=== PATIENT | female | born 1975 | race Caucasian/White ===

== ENCOUNTER 2018-01-14 10:28 | Outpatient (CLI) | payer BC | END 2018-01-14 10:29 | disposition home or self-care (01) | LOC: BICMAMMO 10:28 | PROVIDERS: ATTEND Internal Medicine Hematology & Oncology | DX: Z08 Encounter for follow-up examination after completed treatment for malignant neoplasm (principal); Z85.3 Personal history of malignant neoplasm of breast; Z80.3 Family history of malignant neoplasm of breast | CPT/HCPCS: G0279 ==

== ENCOUNTER 2018-09-05 14:32 | Outpatient (CLI) | payer BC ==
[~2018-09-05 14:32] MED LIST: Iopamidol 370 76% 100 ML VIAL ONE
--- NOTE | 2018-09-05 16:02 | CT ---
CHEST CT WITH CONTRAST: Date: 09/05/18 HISTORY: Breast cancer. Left mastectomy with reconstruction. Recent chest radiograph showed possible lung mass es. COMPARISON: None. CORRELATION: Chest radiograph series dated 08/23/18. FINDINGS: There are postoperative changes compatible with left mastectomy and reconstruction. No mediastinal mass, lymphadenopathy, or hematoma. Heart size is within normal limits. No pericardial effusion. The thoracic aorta and upper abdominal aorta have a normal caliber. No periaortic fat stra nding. There are subcentimeter hypodensities in the liver. There is an 8.0 mm hypodensity in the lateral seg ment of the left hepatic lobe. There is an 8.0 mm hypodense in the posterior segment of the right hep atic lobe. There is a 6.0 mm hypodensity in the lateral aspect of the posterior segment of the right hepatic lobe. Hypodensities are noted appreciated on a CT from [facility] dated 10/12/12. Remaining visualized upper solid abdominal viscera is unremarkable. Trachea and central bronchi are patent. There are no suspicious masses or consolidation in the lung p arenchyma. 3.0 mm nodule in the right upper lobe. There is a 3.0 mm nodule adjacent to the minor fiss ure likely representing a subpleural lymph node. Calcified nodule in the medial aspect of the left lo wer lobe, as well as posterior aspect of the left lower lobe. Sequelae of previous granulomatous dise ase is favored. No lytic or blastic lesions in the osseous structures. There does appear to be irregularity involving the T10 vertebral body, worrisome for metastasis with associated pathologic fracture. There is also abnormal lucency along the left aspect of the T12 vertebral body, possibly involving the left pedicle . Possible T12 metastases is suspected. Similar attenuation noted on the left at T11. IMPRESSION: 1. Calcified granulomas in the left lung. 2. Nonspecific nodules in the right lung. Nodules are too small to characterize. 3. Abnormal appearance of the T10-T12 vertebral bodies. If there is concern for osseous metastasis, consider MRI of the thoracic spine with and without contrast. KENN Tran. POS: MINNA
== END 2018-09-05 14:33 | disposition home or self-care (01) ==
LOC: BICCT 14:32
PROVIDERS: ATTEND Internal Medicine Hematology & Oncology
DX: C50.919 Malignant neoplasm of unspecified site of unspecified female breast (principal); J84.10 Pulmonary fibrosis, unspecified; R93.7 Abnormal findings on diagnostic imaging of other parts of musculoskeletal system; R91.8 Other nonspecific abnormal finding of lung field
CPT/HCPCS: 71260

== ENCOUNTER 2018-09-12 13:05 | Outpatient (CLI) | payer BC ==
[~2018-09-12 13:05] MED LIST changes: +Gadobenate Dimeglumine 529 MG/1 ML (20ML VIAL) ONE; -Iopamidol 370 76% 100 ML VIAL ONE
--- NOTE | 2018-09-12 15:43 | MRI ---
MRI THORACIC SPINE WITHOUT AND WITH CONTRAST: Comparison: None. History: Breast cancer. Abnormal appearance of the T10 and T12 vertebral bodies on prior imaging. Marga luate for metastatic disease. Technique: Multiplanar, multisequence MR images were obtained of the thoracic spine without and with IV contrast. FINDINGS: There are scattered areas of abnormal enhancement in the vertebral bodies of the spine. This is abno rmal enhancement is seen at the T2, T5, T7, T8, T10, T11 and T12 levels. This extends into the pedicl es on the left at T2, T10, T11 and T12, and involves the right pedicles at T8, T10, and T11. These ab normal foci of enhancement are consistent with diffuse osseous metastatic disease. No fracture is ap preciated. Visualized cord demonstrates normal signal throughout. No abnormal enhancement is seen within the immanuel tral canal. The prevertebral and paraspinal soft tissues are unremarkable. No significant posterior bulge or protrusion is seen throughout the thoracic spine. No neural foramin al or central canal stenosis is seen. IMPRESSION: Diffuse abnormal enhancement of the vertebral bodies of the thoracic spine extending into the lateral elements consistent with osseous metastatic disease. POS: MINNA
== END 2018-09-12 13:06 | disposition home or self-care (01) ==
LOC: MRI 13:05
PROVIDERS: ATTEND Internal Medicine Hematology & Oncology
DX: C50.919 Malignant neoplasm of unspecified site of unspecified female breast (principal); R93.7 Abnormal findings on diagnostic imaging of other parts of musculoskeletal system
CPT/HCPCS: 72157; A9579

== ENCOUNTER 2018-09-22 11:07 | Outpatient (CLI) | payer BC ==
--- NOTE | 2018-09-22 16:10 | PET ---
PET CT SKULL TO MID THIGH: CLINICAL HISTORY: Breast malignancy, left breast malignancy with metastatic disease. Reference made to preceding chest and MRI thoracic spine exams from August 2018. RADIOPHARMACEUTICAL: 9.9 mCi [id number] IV. FINDINGS: There are innumerable hypermetabolic osseous metastatic lesions spanning the level of the skull base through the cervical, thoracic, and lumbosacral spine. Osseous metastatic lesions also involve each s houlder girdle and the pelvis bilaterally, as well as the proximal aspect of each visualized femur, m ore notable on the right. Maximum SUV approximates 8, which involves a lesion at the upper thoracic s pine. There are numerous hypermetabolic lesions of the liver, with SUV maximum of approximately 4. Th ere is hypermetabolic activity of Waldeyer's ring, nonspecific, with SUV maximum of 5.3. IMPRESSION: 1. Diffuse osseous metastatic disease of axial and appendicular skeleton. 2. Numerous hypermetabolic hepatic metastasis. 3. Diffuse hypermetabolic activity of Waldeyer's ring, which could be inflammatory, although neoplas tic process is not excluded. 4. Tiny nodules of the lungs are not optimally depicted on the basis of this exam which CT portion i s for attenuation correction and is nondiagnostic. There is a focus of patchy opacity of the left low er lobe, which was not present on recent CT thorax, which could relate to developing area of pneumoni tis in the correct clinical context. Consider follow-up with CT thorax to further surveil nodules and area of alveolar opacity. POS: MINNA
== END 2018-09-22 11:08 | disposition home or self-care (01) ==
LOC: PET 11:07
PROVIDERS: ATTEND Internal Medicine Hematology & Oncology
DX: C50.919 Malignant neoplasm of unspecified site of unspecified female breast (principal); C78.7 Secondary malignant neoplasm of liver and intrahepatic bile duct; R91.8 Other nonspecific abnormal finding of lung field
CPT/HCPCS: 78815; A9552

== ENCOUNTER 2019-01-03 10:41 | Outpatient (CLI) | payer BC ==
--- NOTE | 2019-01-03 15:54 | PET ---
RADIONUCLIDE PET SCAN WITH CT ATTENUATION CORRECTION 01/03/19 HISTORY: Breast cancer with extensive osseous metastases. Rising tumor markers. Restaging. COMPARISON: 09/22/18. FINDINGS: Physiologic uptake of radiotracer throughout the enteric system and along each urinary tract. Uptake previously seen around Waldeyer's ring of the pharynx has resolved with no hypermetabolic activity no w evident. Within the liver, heterogeneous uptake is again demonstrated. It is most apparent in the l eft liver lobe where current maximum SUV is 4.6 (previously 4.1). On today's exam, nonspecific muscular type uptake is present, on each side of the neck base associate d with the trapezius muscles. The extensive osseous metastatic lesions are again demonstrated, although much less intense on today' s study. The best examples are as follows: LOCATION CURRENT MAX SUV (PREVIOUS SUV) Left scapula 2.8 6.3 Upper T-spine 3.4 8.1 Lower T-spine 5.3 8.7 Right iliac bone 4.5 9.6 Right proximal femur 4.9 10.1 IMPRESSION: While widespread hypermetabolic activity associated with the osseous metastases persists, it is much less intense than on the prior study, as detailed above. No new metastatic foci are apparent. Hypermetabolic activity associated with the liver lesions has not significantly changed. POS: MINNA
== END 2019-01-03 10:42 | disposition home or self-care (01) ==
LOC: PET 10:41
PROVIDERS: ATTEND Internal Medicine Hematology & Oncology
DX: C50.919 Malignant neoplasm of unspecified site of unspecified female breast (principal); C79.51 Secondary malignant neoplasm of bone; K76.9 Liver disease, unspecified
CPT/HCPCS: 78815; A9552

== ENCOUNTER 2019-04-11 08:25 | Outpatient (CLI) | payer BC ==
--- NOTE | 2019-04-11 12:10 | PET ---
PET CT: 04/11/19 HISTORY: Left sided breast cancer with bone mets. Exam requested for restaging. COMPARISON: PET scan dated 01/03/19. FINDINGS: No lanie hypermetabolism is seen in the neck, chest, axillae, abdomen or pelvis. No hypermetabolic pu lmonary nodules or adrenal lesions are seen. A new hypermetabolic lesion has developed in the medial segment of the left lobe of the liver with an SUV of 7. The lesions in the lateral segment of the left lobe of the liver noted on the previous exa m show significant interval improvement. Numerous hypermetabolic osseous lesions are again seen. Slip Operator sites demonstrate an SUV of 5. 8 at L2 (previously 4.7), left scapula 3.3 (previously 2.8 ) and right proximal femur 5.1 (previously 4.9). A new hypermetabolic lesion has developed in the anterior aspect of the left iliac bone with an SUV o f 3.6. Physiologic activity is noted in the GI and tracts and the visualized portions of the brain. No pl eural or pericardial effusions are identified. The CT scan used for attenuation correction demonstrates no evidence of pleural or pericardial effusi ons. IMPRESSION: Mixed response to therapy since 01/03/19. POS: MINNA
== END 2019-04-11 08:26 | disposition home or self-care (01) ==
LOC: PET 08:25
PROVIDERS: ATTEND Internal Medicine Hematology & Oncology
DX: C50.912 Malignant neoplasm of unspecified site of left female breast (principal); C79.51 Secondary malignant neoplasm of bone
CPT/HCPCS: 78815; A9552